=== PATIENT | female | born 1940 | race Caucasian/White ===

== ENCOUNTER 2018-03-10 00:25 | Inpatient (IN) | payer MEDICARE ==
[2018-03-10] MEDS ORDERED: Morphine 4 MG/ML VIAL ONE ×2 (00:43→02:20)
[2018-03-10] MEDS ORDERED: Ondansetron PF 4 MG/2 ML Vial ONE ×3 (00:43→11:33)
[2018-03-10 01:02] LABS: #Basophils 0.1 thou/uL (0.0-0.2); #Eosinphils 0.4 thou/uL (0.0-0.7); #Lymphocytes 2.2 thou/uL (1.20-3.40); #Monocytes 0.5 thou/uL (0.11-0.59); #Neutrophils 6.7 thou/uL (1.40-6.50); %Basophils 0.8 % (0.0-1.0); %Eosinophils 3.7 % (0.0-10.0); %Lymphocytes 22.1 % (21.0-51.0); %Monocytes 4.8 % (0.0-10.0); %Neutrophils 68.6 % (42.0-75.0); Hemoglobin 12.4 g/dL (12.0-16.0); Mean Corpuscular HGB CONC 33.1 g/dL (32.0-36.0); Mean Corpuscular Hemoglobin 25.9 pg (27.0-31.0); Mean Corpuscular Volume 78.3 fL (78.0-98.0); Mean Platelet Volume 7.4 fL (7.4-10.4); Platelet Count 238 thou/uL (130-400); RBC Distribution Width 12.2 % (11.5-14.5); Red Blood Cell (RBC) Count 4.77 mill/uL (4.20-5.40); White Blood Cell (WBC) Count 9.7 thou/uL (4.8-10.8)
[2018-03-10 01:29] LABS: ALT (SGPT) 10 U/L (8-55); AST (SGOT) 16 U/L (5-34); Alkaline Phosphatase 78 U/L (40-150); Anion Gap 14 mmol/L (10-20); BUN (Urea Nitrogen) 19 mg/dL (9.8-20.1); Bilirubin, Total 0.4 mg/dL (0.2-1.2); Calc. Creatinine Clearance 0 mL/min (70-130); Calcium 10.1 mg/dL (7.8-10.44); Carbon Dioxide 25 mmol/L (23-31); Chloride 105 mmol/L (98-107); Estimated GFR-MDRD 57; Glucose 147 mg/dL (83-110); Potassium 4.2 mmol/L (3.5-5.1); Sodium 140 mmol/L (136-145)
[2018-03-10 01:41] LABS: Bilirubin Negative (Negative); Blood, Urine Negative (Negative); Clarity CLOUDY (Clear); Glucose, Urine (Dipstick) Negative (Negative); Leukocyte Large (Negative); Nitrite Negative (Negative); Protein, Urine (Dipstick) Negative (Neg-Trace); Specific Gravity, Urine 1.019 (1.002-1.036); Urobilinogen 0.2 mg/dL (0.2-1.0)
[2018-03-10 01:43] LABS: Bacteria/HPF Rare-Few HPF (None Seen); Pathc Cast-AUWi Flag 1.74 (0-2.49); RBC/HPF 0-3 HPF (0-3)
[2018-03-10] MEDS ORDERED: Ondansetron PF 4 MG/2 ML Vial IVP PRN (01:49)
[2018-03-10] MEDS ORDERED: HYDROcodone/Acetaminophen 10/325 mg Tablet PO PRN (01:49)
[2018-03-10] MEDS ORDERED: Dextrose 50% Abboject 50 ML SYRINGE SLOW IVP PRN (01:49)
[2018-03-10] MEDS ORDERED: Dextrose 5% in Water 1,000 ML IV PRN (01:49)
[2018-03-10] MEDS ORDERED: hydrALAZINE 20 MG/ML VIAL SLOW IVP PRN (01:49)
[2018-03-10 01:51] LABS: Hyaline Casts/LPF 4-6 HYALINE CAST LPF (0-3 Hyaline)
[2018-03-10] MEDS: Morphine 2 MG/ML SYRINGE SLOW IVP PRN ×2 (03:15→06:32)
[2018-03-10] MEDS: Acetaminophen 325 MG TAB PO SCH ×4 (03:15→20:47)
[2018-03-10] MEDS: Sodium Chloride 0.9% 1,000 ML IV SCH ×2 (03:15→16:34)
[2018-03-10] MEDS ORDERED: Prevnar 13-Val Conj/PF 0.5 ML SYRINGE IM ONE (04:15)
[2018-03-10] MEDS: traMADol HCl 50 MG TAB PO SCH ×3 (05:31→20:10)
[2018-03-10] MEDS: Ibuprofen 600 MG TAB PO SCH ×3 (05:35→20:48)
[2018-03-10 05:37] VITALS: BMI 35.9
[2018-03-10 06:23] LABS: Hemoglobin A1c 5.7 % (4.0-6.0)
[2018-03-10 07:10] LABS: Bilirubin Negative (Negative); Blood, Urine Trace (Negative); Glucose, Urine (Dipstick) Negative (Negative); Leukocyte Negative (Negative); Nitrite Negative (Negative); Protein, Urine (Dipstick) Negative (Neg-Trace); Urobilinogen 0.2 mg/dL (0.2-1.0); pH, Urine 5.5 (5.0-9.0)
[2018-03-10 07:15] LABS: Clarity Clear (Clear)
[2018-03-10 07:19] LABS: Specific Gravity, Urine 1.026 (1.002-1.036)
[2018-03-10] MEDS ORDERED: CEFAZOLIN 2 GM/50 ML BAG IVPB SCH (08:00)
--- NOTE | 2018-03-10 08:03 | RAD ---
PORTABLE AP CHEST: Date: 03/10/18 HISTORY: Injury after a fall. COMPARISON: 12/26/10. FINDINGS: Cardiac silhouette is magnified by projection. Thoracic aorta is ectatic. There is atelectasis at the medial left lung base. Lungs are otherwise clear. Degenerative changes are present in the spine. No other interval change. IMPRESSION: 1. No acute cardiopulmonary process. 2. Ectasia of thoracic aorta. POS: [facility]
--- NOTE | 2018-03-10 08:09 | RAD ---
2 VIEWS RIGHT HIP: Date: 03/09/18 COMPARISON: None. HISTORY: Fall, trauma, pain. FINDINGS: Body habitus limits detailed assessment of the osseous structures. On the oblique image, there is a l ucency in the intertrochanteric region concerning for a fracture of the proximal right femur in this region. On the frontal examination, there is a probable fracture line noted in the intertrochanteric region at the distal aspect of the greater trochanter. IMPRESSION: Findings suspicious for proximal right femur fracture. This could be better assessed with CT examinat ion. POS: [facility]
--- NOTE | 2018-03-10 09:50 | HP ---
Referred by Dr. Monse Bowman in the Emergency Department. TRAUMA ATTENDING: Todd Patton MD REASON FOR ADMISSION: Right femoral neck fracture. HISTORY OF PRESENT ILLNESS: Ms. Tamayo is a 77-year-old female with past medical history of hypertension, who sustained a mechanical fall after tripping on carpet damage at her house, landing on her right hip. She denies any loss of consciousness, denies any neck pain, denies any headache. She has no pain other than the right hip. EMS was called. She has a shortened and externally rotated right leg, was given fentanyl en route and morphine here at the Emergency Department, noted on x-ray to have a right hip fracture. Labs have been unremarkable and Trauma Service was requested for admission. Dr. Maria of Orthopedic has been consulted and he will see the patient in the morning. I have seen the patient in the Emergency Department, she is still in quite a bit of pain in the right hip. A Vincent catheter is in place. Her vital signs are stable other than some hypertension that is noted. The patient denies any other pain. Denies nausea, vomiting, or diarrhea. Denies any recent fever or illness. She has no rashes, no neck pain, no headache, no chest pain. REVIEW OF SYSTEMS: Pertinent positives and negatives per the HPI, otherwise is regarded as negative. PAST MEDICAL HISTORY: Hypertension. MEDICATIONS: 1. Lisinopril 40 mg daily. 2. Metoprolol 50 mg daily. ALLERGIES: NO KNOWN DRUG ALLERGIES. PAST SURGICAL HISTORY: Appendectomy at age 9. SOCIAL HISTORY: The patient lives with her granddaughter in [place] where she lives since 1989. She is . She is a lifelong nonsmoker, nondrinker, no illicit drug use and completes all of her own ADLs. FAMILY HISTORY: Significant for cancer in her mother side with breast and melanoma. Dad's side, no known medical history. PHYSICAL EXAMINATION: VITAL SIGNS: Temperature is 97.8, blood pressure is 173/106, heart rate is 83, respiratory rate is 20, and O2 saturating 97% on room air. GENERAL: She is a 77-year-old female, lying in bed, and appears uncomfortable with pain, but nontoxic appearing. HEENT: Normocephalic and atraumatic. Trachea is midline. No JVD is appreciated. She has dry mucous membranes. RESPIRATORY: Equal rise and fall bilateral. Breath sounds are clear to auscultation in upper and lower bilaterally. CARDIOVASCULAR: Regular rate and rhythm. No murmurs appreciated. ABDOMEN: Obese, but soft and nontender. PELVIS: Right hip pain and Vincent catheter with yellow urine is noted. MUSCULOSKELETAL: Moves extremities, has sensation in all extremities. Right hip pain is noted. The right leg is shortened and externally rotated. Strong pulses in the upper extremities, no edema. SKIN: [place], warm, and dry. NEUROLOGIC: Alert and oriented to person, place, time, and event. PSYCHIATRIC: Normal mood and affect. DIAGNOSTIC DATA: Today, a hip x-ray shows a right femoral neck fracture. LABORATORY DATA: From today, shows UA with yellow urine, many white blood cells, but it is contaminated with no bacteria, nitrite negative, large amount of leukocytes; repeat this. Type and screen, O positive. Troponin is negative. Sodium is 140, potassium 4.2, chloride is 105, CO2 of 25, BUN is 19, creatinine is 0.95, and glucose is 147. Calcium is 10.1. AST and ALT are 16 and 10 respectively, alkaline phosphatase is 78. White blood cell count is 9.7, platelets are 238, and hemoglobin and hematocrit 12.4 and 37.4 respectively. EKG, sinus at rate of 84, with normal axis. ASSESSMENT: 1. Right hip fracture. 2. Acute traumatic pain. 3. Hyperglycemia. 4. Hypertension, pain versus chronic. PLAN: 1. Admit to the surgery adams. 2. N.p.o. for likely surgery tomorrow. 3. Dr. Maria has been consulted. 4. Additional 4 mg of morphine, 4 of Zofran for extreme pain. 5. Start oral medications. 6. Bedrest until surgery. 7. Obtain hemoglobin A1c. 8. Continue daily antihypertensives. 9. Trauma bowel regimen. 10. Diet will be n.p.o. except for meds until surgery. 11. Activity is bedrest until after surgery. 12. Full code. 13. Access of peripheral IVs and Vincent catheter. 14. Prophylaxis will be famotidine and SCDs until after surgery. 15. Disposition is surgery adams. I have coordinated the care with the Emergency Department physician and the ER staff. I have updated Ms. Tamayo at the bedside as well as her granddaughter and answered all questions. This plan can be updated as needed. Job ID: [id number]
[2018-03-10] MEDS: Famotidine 20 MG TAB PO SCH ×2 (10:17→20:48)
[2018-03-10] MEDS: Lisinopril 20 MG TAB PO SCH (10:17)
[2018-03-10] MEDS ORDERED: PHENYLEPHRINE-NS 100 MCG/ML 10 ML SYRINGE ONE (11:33)
[2018-03-10] MEDS ORDERED: Lidocaine 1% PF 5 ML VIAL ONE (11:33)
[2018-03-10] MEDS ORDERED: PROPOFOL 200 MG/20 ML VIAL ONE (11:33)
[2018-03-10] MEDS ORDERED: Ketorolac Tromethamine 30 MG/ML VIAL ONE (11:33)
[2018-03-10] MEDS ORDERED: Glycopyrrolate 0.2 MG/ML 5 ML SYRINGE ONE (11:33)
--- NOTE | 2018-03-10 11:46 | PRG ---
DATE OF SERVICE: 03/10/2018 SUBJECTIVE: The patient is resting comfortably in bed today. Reports good pain control. The patient has no concerns or complaints at this time. OBJECTIVE: VITAL SIGNS: Blood pressure 132/83, pulse 96, respirations 18, O2 saturation 97% on room air, temperature 97.6. GENERAL: Alert and awake, in no acute distress. HEENT: EOMI. Moist mucous membranes. NECK: Trachea midline. CARDIAC: Regular rate and rhythm. No murmurs. RESPIRATORY: Clear to auscultation bilaterally. No wheezing. ABDOMEN: Normal bowel sounds. NEUROLOGIC: No acute focal deficits. LABORATORY DATA: White blood cell count 9.7, hemoglobin 12.4, hematocrit 37.4, platelet count 238. Sodium 140, potassium 4.2, BUN 19, creatinine 0.95, glucose 147. ASSESSMENT: 1. Right hip fracture. 2. Acute traumatic pain. 3. Hypertension. 4. Hyperglycemia. PLAN: 1. Orthopedic Surgery has been consulted. The patient is n.p.o. for possibility of surgery. 2. Home medications for hypertension. 3. Continue pain control and keep the patient bedrest until surgery. 4. We will follow up on hemoglobin A1c. 5. We will consult rehab screen for discharge planning. This patient was seen and evaluated by Dr. Davis, on morning rounds. The patient verbalized understanding and agreement with plan. Job ID: [id number]
--- NOTE | 2018-03-10 14:59 | CON ---
DATE OF CONSULTATION: CHIEF COMPLAINT: Right hip pain. HISTORY OF PRESENT ILLNESS: Ms. Tamayo is a 77-year-old female, who was at home yesterday. She tripped on a rug. She fell hard on her right side. She landed on her right hip. She was unable to ambulate. She had pain in the hip. She was taken to the emergency department by EMS. X-rays had demonstrated an intertrochanteric femur fracture. She had been admitted to the hospital. She is currently comfortable in resting. She has her granddaughter with her at the bedside. She normally ambulates well with no walker or cane. No previous recent fractures. She reports being in good health recently. PAST MEDICAL HISTORY: Hypertension and osteoarthritis. PAST SURGICAL HISTORY: Appendectomy. SOCIAL HISTORY: The patient denies alcohol, tobacco, or drug use. She lives with her granddaughter independently. ALLERGIES: NO KNOWN DRUG ALLERGIES. PHYSICAL EXAMINATION: VITAL SIGNS: Temperature is 98.4, pulse is 97, respiratory rate 18, and blood pressure 140/78. GENERAL: She is alert and oriented, lying supine, in no apparent distress. HEENT: Normocephalic and atraumatic. RESPIRATORY: Breathing comfortably. ABDOMEN: Soft, nontender, and nondistended. CARDIOVASCULAR: Pulses are palpable and regular. MUSCULOSKELETAL: The patient's right lower extremity has pain with motion. She is slightly shortened. She has intact neurovascular status distally. SKIN: Intact. DIAGNOSTIC DATA: X-ray of the right pelvis and hip demonstrates intertrochanteric femur fracture with displacement, two part fracture. IMPRESSION: Right intertrochanteric femur fracture in an elderly female. PLAN: At this point, the patient will need to go to the operating room. I have reviewed risks and benefits with her. Risks to include infection, pain, scarring, nerve or vascular injury, DVT, hardware failure, nonunion, and others. Goal of surgery is to promote early mobilization and prevent complications and prolong bedrest. We will plan for a dynamic hip screw fixation of the intertrochanteric fracture. She will remain n.p.o. She will have pain control and deep venous thrombosis prophylaxis, as well as antibiotic prophylaxis. Job ID: [id number]
[2018-03-10] MEDS ORDERED: Fentanyl 100 MCG/2 ML VIAL ONE (16:41)
[2018-03-10] MEDS ORDERED: CEFAZOLIN 2 GM/50 ML BAG ONE (16:49)
[2018-03-10] MEDS ORDERED: Ondansetron HCl/PF 4 MG/2 ML Vial IVP PRN (18:11)
[2018-03-10] MEDS ORDERED: Promethazine HCl 25 MG/ML VIAL IM PRN (18:11)
[2018-03-10] MEDS ORDERED: Promethazine HCl 25 MG/ML VIAL SLOW IVP PRN (18:11)
[2018-03-10] MEDS: CEFAZOLIN 2 GM/50 ML BAG IV SCH (20:10)
--- NOTE | 2018-03-10 20:39 | RAD ---
RIGHT HIP 2 VIEWS: Date: 03/10/18 HISTORY: Intraoperative films. FINDINGS: Films show Grubbs-type compression screw and side plate stabilizing an intertrochanteric fracture i n satisfactory position. IMPRESSION: Intraoperative films showing open reduction and internal fixation of hip fracture. POS: [facility]
[2018-03-10] MEDS: traMADol HCl 50 MG TAB PO PRN (20:48)
[2018-03-11] MEDS: traMADol HCl 50 MG TAB PO SCH ×4 (00:58→17:04)
[2018-03-11] MEDS: CEFAZOLIN 2 GM/50 ML BAG IV SCH (01:01)
[2018-03-11] MEDS: Acetaminophen 325 MG TAB PO SCH ×2 (03:39→08:47)
--- NOTE | 2018-03-11 04:47 | OP ---
DATE OF PROCEDURE: 03/10/2018 PROCEDURE PERFORMED: Right intertrochanteric femur internal fixation with dynamic hip screw. PREOPERATIVE DIAGNOSIS: Right intertrochanteric femur fracture. POSTOPERATIVE DIAGNOSIS: Right intertrochanteric femur fracture. COMPLICATIONS: None. ESTIMATED BLOOD LOSS: 150 mL. ANESTHESIA: General. GARAGE DOOR OPENER INSTALLER: Jak Becerril PA-C IMPLANTS: Synthes 3-hole, 135-degree DHS screw and sideplate 80-mm screw. INDICATIONS FOR PROCEDURE: Ms. Tamayo is a 77-year-old female, who has fallen. She fractured her right proximal femur. She was indicated for open reduction and fixation to restore anatomical alignment and promote healing. Risks have been reviewed in detail. She elected to proceed with the operation. DESCRIPTION OF PROCEDURE: Ms. Tamayo was identified in the preoperative holding area. Her correct extremity was marked. She was carried to the operating room. She was positioned supine. General anesthesia was induced. A multidisciplinary time-out was performed. The right lower extremity was prepped and draped in sterile fashion. We began the procedure with lateral incision over the thigh. We dissected down through the subcutaneous tissues to the vastus fascia, which was opened. We then cleared the soft tissues from the lateral femoral cortex. At this point, we placed a 135-degree angle guide. We placed a pin in the center position of the femoral head. At this point, we overdrilled the guidepin. We measured an appropriate length. We then placed our central screw. We impacted a 3-hole plate. We then placed 3 screws through the plate, locking the plate to the bone. We took final images. We thoroughly irrigated with copious lavage. We then closed in appropriate layers. The patient was taken to the recovery room in good condition. Job ID: [id number]
[2018-03-11 06:10] LABS: Hemoglobin 10.3 g/dL (12.0-16.0); Mean Corpuscular Hemoglobin 26.4 pg (27.0-31.0); Mean Platelet Volume 7.6 fL (7.4-10.4); Platelet Count 198 thou/uL (130-400); RBC Distribution Width 12.3 % (11.5-14.5); White Blood Cell (WBC) Count 9.3 thou/uL (4.8-10.8)
[2018-03-11] MEDS: Ibuprofen 600 MG TAB PO SCH ×3 (06:28→21:43)
[2018-03-11] MEDS: Famotidine 20 MG TAB PO SCH ×2 (08:47→21:43)
[2018-03-11] MEDS: Lisinopril 20 MG TAB PO SCH (08:47)
[2018-03-11] MEDS ORDERED: Chloraseptic Spray 180 ml Bottle PO PRN (11:28)
[2018-03-11] MEDS: Acetaminophen 500 MG TAB PO SCH ×2 (14:00→21:43)
--- NOTE | 2018-03-11 18:31 | PRG ---
DATE OF SERVICE: 03/11/2018 SUBJECTIVE: The patient had a mechanical fall, she is postop day #1 status post right hip fracture. She reports good pain control at this time. She is resting comfortably in bed. Currently, her SpO2 is 86% on room air. The patient does complain of throat pain, otherwise no complaints. OBJECTIVE: VITAL SIGNS: Blood pressure 116/75, respirations 18, pulse 70, temperature 97.7, and SpO2 of 96% on 2 L nasal cannula. GENERAL: The patient is awake and alert, in no distress. CARDIAC: Regular rate and rhythm, and no murmurs. RESPIRATORY: No wheezing. Respirations equal and unlabored. ABDOMEN: Nontender. NEUROLOGIC: No focal deficits. EXTREMITIES: Moves all extremities. LABORATORY DATA: White blood count 9.3, RBC 3.90, hemoglobin 10.3, and hematocrit 31.2. ASSESSMENT: 1. Mechanical fall. 2. Right hip fracture, status post open reduction and internal fixation. 3. Acute traumatic pain. 4. Hypertension. 5. Hyperglycemia. PLAN: Start on Lovenox for DVT prophylaxis. Discontinue Vincent. We will order Chloraseptic spray for throat pain. Place patient back on oxygen. We will encourage the patient to use her incentive spirometer. We will continue physical therapy and encourage getting up and moving. Continue pain management. Case management consulted for placement. The patient was discussed with attending surgeon. Job ID: [id number] [facility]
[2018-03-11] MEDS: Enoxaparin Sodium 40 MG/0.4 ML SYRINGE SC SCH (21:43)
[2018-03-12] MEDS: traMADol HCl 50 MG TAB PO SCH ×5 (00:21→23:27)
[2018-03-12] MEDS: Acetaminophen 500 MG TAB PO SCH ×4 (03:07→20:54)
[2018-03-12] MEDS: Ibuprofen 600 MG TAB PO SCH ×3 (05:38→20:54)
[2018-03-12 06:24] LABS: #Basophils 0.1 thou/uL (0.0-0.2); #Eosinphils 0.9 thou/uL (0.0-0.7); #Lymphocytes 1.9 thou/uL (1.20-3.40); #Monocytes 0.7 thou/uL (0.11-0.59); #Neutrophils 4.9 thou/uL (1.40-6.50); %Basophils 0.8 % (0.0-1.0); %Eosinophils 10.7 % (0.0-10.0); %Lymphocytes 22.9 % (21.0-51.0); %Monocytes 7.8 % (0.0-10.0); %Neutrophils 57.9 % (42.0-75.0); Hemoglobin 9.7 g/dL (12.0-16.0); Mean Corpuscular HGB CONC 32.6 g/dL (32.0-36.0); Mean Corpuscular Hemoglobin 25.8 pg (27.0-31.0); Mean Corpuscular Volume 79.2 fL (78.0-98.0); Mean Platelet Volume 7.8 fL (7.4-10.4); Platelet Count 177 thou/uL (130-400); RBC Distribution Width 12.4 % (11.5-14.5); Red Blood Cell (RBC) Count 3.76 mill/uL (4.20-5.40); White Blood Cell (WBC) Count 8.4 thou/uL (4.8-10.8)
[2018-03-12 06:48] LABS: Anion Gap 10 mmol/L (10-20); BUN (Urea Nitrogen) 15 mg/dL (9.8-20.1); Calc. Creatinine Clearance 76 mL/min (70-130); Calcium 8.9 mg/dL (7.8-10.44); Carbon Dioxide 27 mmol/L (23-31); Chloride 105 mmol/L (98-107); Estimated GFR-MDRD 61; Glucose 106 mg/dL (83-110); Phosphorus 2.6 mg/dL (2.3-4.7); Potassium 4.5 mmol/L (3.5-5.1); Sodium 137 mmol/L (136-145)
[2018-03-12] MEDS: Famotidine 20 MG TAB PO SCH ×2 (09:31→20:54)
[2018-03-12] MEDS: Lisinopril 20 MG TAB PO SCH (09:31)
--- NOTE | 2018-03-12 12:47 | EKG ---
Test Reason : Blood Pressure : / mmHG Vent. Rate : 084 BPM Atrial Rate : 084 BPM P-R Int : 184 ms QRS Dur : 084 ms QT Int : 410 ms P-R-T Axes : 060 -01 031 degrees QTc Int : 484 ms Normal sinus rhythm Confirmed by LIBBY BASS [id number]), transformer mechanic JESSICA MALDONADO ([id number]) on 03/12/2018 12:47:35 PM Referred By: SHELIA Confirmed By:LIBBY BASS
--- NOTE | 2018-03-12 20:19 | PRG ---
DATE OF SERVICE: 03/12/2018 SUBJECTIVE: This is a 77-year-old female, who had a mechanical fall. She is postop day #2 right hip fracture. The patient was just recently up with physical therapy and has been sitting up in the chair for a couple of hours reporting some mild nausea, which has resolved after she laid down in the bed. The patient has not had a bowel movement, but is passing gas. The patient does have a good appetite. The patient continues to use her incentive spirometer and has improved. The patient is currently off oxygen at this time and tolerating well. The patient also reports that her pain is well controlled. There were no overnight events. OBJECTIVE: VITAL SIGNS: Temperature 98.0, pulse 71, respirations 14, O2 saturation 95%, blood pressure 145/79. GENERAL: The patient is awake and alert. GCS of 15. No distress. CARDIAC: Regular rate and rhythm. No pedal edema. RESPIRATORY: No wheezing. Respirations equal and unlabored. No cyanosis. ABDOMEN: Nontender and soft. NEUROLOGIC: No focal deficits. EXTREMITIES: The patient moves all extremities with good distal pulses. LABORATORY DATA: WBC 8.4, RBC 3.76, hemoglobin 9.7, hematocrit 29.8. Sodium 137, potassium 4.5, chloride 105, CO2 of 27, BUN 15, creatinine 0.90, calcium 8.9, phosphorus 2.6, magnesium 2.0. ASSESSMENT: 1. Mechanical fall. 2. Right hip fracture, status post open reduction and internal fixation, day #2. 3. Acute traumatic pain. PLAN: 1. Continue pain management. 2. Continue physical therapy and encourage the patient to be up in the chair, using her incentive spirometer. The patient is pending placement to swing bed in [place]. 3. We will continue bowel regimen. The patient has been discussed with the admitting surgeon. Job ID: [id number]
[2018-03-12] MEDS: Senokot S 8.6-50 MG TAB PO SCH (20:54)
[2018-03-12] MEDS: Enoxaparin Sodium 40 MG/0.4 ML SYRINGE SC SCH (20:57)
[2018-03-13] MEDS: Acetaminophen 500 MG TAB PO SCH ×4 (03:09→20:07)
[2018-03-13] MEDS: Ibuprofen 600 MG TAB PO SCH ×3 (05:24→21:38)
[2018-03-13] MEDS: traMADol HCl 50 MG TAB PO SCH ×4 (05:24→23:27)
[2018-03-13] MEDS: Polyethylene Glycol 3350 17 GM Packet PO SCH (08:55)
[2018-03-13] MEDS: traMADol HCl 50 MG TAB PO PRN (08:55)
[2018-03-13] MEDS: Famotidine 20 MG TAB PO SCH ×2 (08:55→20:06)
[2018-03-13] MEDS: Lisinopril 20 MG TAB PO SCH (08:55)
[2018-03-13] MEDS: Senokot S 8.6-50 MG TAB PO SCH ×2 (08:55→20:06)
--- NOTE | 2018-03-13 12:55 | PRG ---
DATE OF SERVICE: 03/13/2018 SUBJECTIVE: A 77-year-old female, who had a mechanical fall, postop day 3 right hip fracture repair. The patient participated with physical therapy this morning and was able to ambulate. Reports that her pain is controlled at this time. Her only complaint is taking her blood pressure pill before her breakfast this morning as it caused a headache. She was informed she could ask the nurse to give it to her after she eats next time. The patient voices no other concerns at this time. There were no overnight events. The patient still has not had bowel movement since admission , but is passing gas. She reports that she normally goes several days without having a bowel movement, so this is not unusual for her. The patient continues to have a good appetite. The patient continues to use her incentive spirometer. The patient continues to require oxygen occasionally. OBJECTIVE: VITAL SIGNS: Temperature 97.8, pulse 74, respirations 20, SpO2 92% on room air, blood pressure 135/77. GENERAL: The patient is awake and alert. GCS of 15. No distress. CARDIAC: Regular rate and rhythm. No pedal edema. RESPIRATORY: No audible wheezing. Respirations equal and unlabored. No cyanosis. ABDOMEN: Soft, nontender. NEUROLOGIC: There are no focal deficits. EXTREMITIES: The patient moves all extremities with good distal pulses. LABORATORY DATA: There is no morning labs to review at this time. ASSESSMENT: 1. Mechanical fall. 2. Postop day 3 right hip fracture with open reduction and internal fixation. 3. Acute traumatic pain. PLAN: We will continue pain management. We will also continue patient on a bowel regimen. We will continue physical therapy. Encourage the patient to get up in the chair and ambulate as much as possible. Continue to encourage incentive spirometer use so she can be off oxygen permanently. Plan is for patient to go to the [facility] swing bed tomorrow. The patient has been discussed with the attending surgeon. Job ID: [id number] [facility]
[2018-03-13] MEDS: Enoxaparin Sodium 40 MG/0.4 ML SYRINGE SC SCH (20:06)
[2018-03-14] MEDS: Acetaminophen 500 MG TAB PO SCH ×2 (02:49→08:00)
[2018-03-14] MEDS: traMADol HCl 50 MG TAB PO PRN (04:34)
[2018-03-14] MEDS: Ibuprofen 600 MG TAB PO SCH (05:53)
[2018-03-14] MEDS: traMADol HCl 50 MG TAB PO SCH ×2 (05:53→11:23)
[2018-03-14 07:23] LABS: #Eosinphils 0.6 thou/uL (0.0-0.7); #Lymphocytes 1.6 thou/uL (1.20-3.40); #Monocytes 0.5 thou/uL (0.11-0.59); #Neutrophils 3.7 thou/uL (1.40-6.50); %Basophils 0.7 % (0.0-1.0); %Eosinophils 9.1 % (0.0-10.0); %Lymphocytes 25.2 % (21.0-51.0); %Monocytes 7.3 % (0.0-10.0); %Neutrophils 57.6 % (42.0-75.0); Hemoglobin 9.6 g/dL (12.0-16.0); Mean Corpuscular HGB CONC 32.7 g/dL (32.0-36.0); Mean Corpuscular Volume 79.5 fL (78.0-98.0); Mean Platelet Volume 7.5 fL (7.4-10.4); Platelet Count 196 thou/uL (130-400); RBC Distribution Width 12.7 % (11.5-14.5); Red Blood Cell (RBC) Count 3.69 mill/uL (4.20-5.40); White Blood Cell (WBC) Count 6.4 thou/uL (4.8-10.8)
[2018-03-14] MEDS ORDERED: Cyclobenzaprine 10 MG TAB PO PRN (07:38)
[2018-03-14] MEDS ORDERED: traMADol HCl 50 MG TAB PO PRN (07:38)
[2018-03-14] MEDS: Senokot S 8.6-50 MG TAB PO SCH (08:00)
[2018-03-14] MEDS: Lisinopril 20 MG TAB PO SCH (08:00)
[2018-03-14] MEDS: Famotidine 20 MG TAB PO SCH (08:00)
[2018-03-14] MEDS: Polyethylene Glycol 3350 17 GM Packet PO SCH (08:01)
[2018-03-14 08:13] VITALS: TEMP 98.2
[2018-03-14 11:48] VITALS: BP 155/82
--- NOTE | 2018-03-14 12:55 | DIS ---
DATE OF ADMISSION: 03/10/2018 DATE OF DISCHARGE: 03/14/2018 PRIMARY CARE PHYSICIAN: Erika Morillo DO RESIDENT: Javier Evans MD ADMITTING ATTENDING: Todd Patton MD DISCHARGE ATTENDING: Yaakov Mena MD CONSULTS: Orthopedic Surgery, Dr. Maria. PROCEDURES: 1. On 03/10/2018, hip x-ray, impression, intraoperative films are showing open reduction and internal fixation of hip fracture. 2. On 03/10/2018, hip x-ray, impression, findings suspicious of proximal right femur fracture. This could be better assessed with CT examination. 3. On 03/10/2018, chest x-ray, impression, no acute cardiopulmonary process, ectasia of thoracic aorta. 4. On 03/10/2018, right intertrochanteric femur internal fixation with dynamic hip screw. PRIMARY DIAGNOSIS: Right intertrochanteric femur fracture, status post open reduction and internal fixation. SECONDARY DIAGNOSIS: Hypertension. DISCHARGE MEDICATIONS: 1. Lisinopril 20 mg p.o. daily. 2. Metoprolol succinate 50 mg p.o. daily. 3. Acetaminophen 1000 mg p.o. q.6 hours p.r.n. 4. Flexeril 10 mg p.o. b.i.d. p.r.n. 5. Famotidine 20 mg p.o. b.i.d. 6. Ferrous sulfate 300 mg p.o. daily. 7. Ibuprofen 600 mg p.o. q.8 hours. 8. MiraLAX 17 g pack p.o. daily. 9. Senokot-S 1 tab p.o. b.i.d. 10. Tramadol 100 mg p.o. q.6 hours p.r.n. DISCONTINUED MEDICATIONS: None. HOSPITAL COURSE: This is a 77-year-old female with past medical history of hypertension, who presented to the emergency room after a mechanical fall at her home, tripping on a carpet. She reported landing on her right hip and was shortly found to have a right intertrochanteric femur fracture. Orthopedic Surgery was consulted and made plans for open reduction and internal fixation of said fracture. The patient tolerated procedure well and had uncomplicated postoperative course. The patient tolerated p.o. diet after operation. Reported good pain control and had a bowel movement, well controlled pain with ibuprofen, tramadol, and Tylenol. The patient's recovery was also encouraged by physical therapy and occupational therapy and the patient was deemed stable for discharge. DISPOSITION: Stable. DISCHARGE INSTRUCTIONS: LOCATION: [facility]. DIET: Healthy heart. ACTIVITY: As tolerated. FOLLOWUP: Follow up with primary care physician, Erika Morillo, in 2 to 3 weeks and orthopedic surgeon, Dr. Maria in 10 days. This patient was seen and evaluated by Dr. Mena on the day of discharge. The patient verbalized understanding with the plan and was in agreement. Job ID: [id number]
== END 2018-03-14 11:49 | disposition home or self-care (01) | DRG 482 ==
LOC: ERS 00:25 → SJJU 01:40
PROVIDERS: ADMIT Surgery; ATTEND Surgery
PROC: 0QS604Z Reposition Right Upper Femur with Internal Fixation Device, Open Approach (ICD-10-PCS; principal; 2018-03-10)
DX: S72.141A Displaced intertrochanteric fracture of right femur, initial encounter for closed fracture (principal); W01.0XXA Fall on same level from slipping, tripping and stumbling without subsequent striking against object, initial encounter; Y92.009 Unspecified place in unspecified non-institutional (private) residence as the place of occurrence of the external cause; I10 Essential (primary) hypertension; R73.9 Hyperglycemia, unspecified; M19.90 Unspecified osteoarthritis, unspecified site; Z80.3 Family history of malignant neoplasm of breast; Z80.8 Family history of malignant neoplasm of other organs or systems
CPT/HCPCS: 36415; 51702; 71045; 76001; 80048; 80053; 81003; 81015; 83036; 83735; 84100; 84484; 85025; 85027; 86850; 86900; 86901; 87086; 93005; 96374; 96375; 96376; C1713; C1769; G8978-GP-CM; G8979-GP-CK; G8987-GO-CL; G8988-GO-CJ; J1650; J1885; J2001; J2270; J2405; J2704; J3010

== ENCOUNTER 2019-04-08 18:17 | Observation (INO) | payer MEDICARE ==
[2019-04-08] MEDS ORDERED: Ondansetron PF 4 MG/2 ML Vial ONE ×2 (18:38→18:47)
[2019-04-08] MEDS ORDERED: Morphine 4 MG/ML VIAL ONE (18:38)
--- NOTE | 2019-04-08 20:11 | ULT ---
GALLBLADDER ULTRASOUND: 04/08/19 HISTORY: Right upper quadrant pain. Real time imaging of the right upper quadrant shows an echogenic focus with shadowing within the gall bladder compatible with a stone. Common duct is in the 5 mm range. There is some minimal gallbladder wall or pericholecystic edema change seen. The technologist reports a positive ultrasound Broussard's si gn. The visualized liver parenchyma shows no focal findings. The pancreas is obscured. Right kidney is no t obstructed and normal in size. IMPRESSION: Cholelithiasis with some thickening to the gallbladder wall. Suggestion of some edema change within t he wall and a positive ultrasound Broussard's sign. POS: [facility]
[2019-04-08] MEDS ORDERED: Ondansetron ODT 4 MG TAB SL PRN (21:44)
[2019-04-08] MEDS ORDERED: Ondansetron PF 4 MG/2 ML Vial IVP PRN (21:44)
[2019-04-08] MEDS ORDERED: Morphine 2 MG/ML SYRINGE SLOW IVP PRN (21:45)
[2019-04-08 22:02] VITALS: BMI 35.0
[2019-04-08] MEDS: Lactated Ringer's 1,000 ML IV SCH (22:14)
[2019-04-08] MEDS: Piperacillin/Tazobactam 3.375 GM in Sodium Chloride 0.9% 100 ML IVPB SCH (23:15)
[2019-04-09] MEDS: Piperacillin/Tazobactam 3.375 GM in Sodium Chloride 0.9% 100 ML IVPB SCH (06:26)
[2019-04-09] MEDS: Lactated Ringer's 1,000 ML IV SCH ×3 (06:41→15:22)
[2019-04-09] MEDS ORDERED: Metoprolol Tartrate 50 MG TAB PO SCH ×3 (06:45→21:00)
[2019-04-09] MEDS ORDERED: Lidocaine 1% w/Epinephrine 1:100K 20 ML VIAL ONE (07:36)
[2019-04-09] MEDS ORDERED: Bupivacaine PF 0.5% 30 ML VIAL ONE (07:36)
[2019-04-09] MEDS ORDERED: Fentanyl 100 MCG/2 ML VIAL ONE (08:06)
[2019-04-09] MEDS ORDERED: Promethazine HCl 25 MG/ML VIAL IM PRN (08:31)
[2019-04-09] MEDS ORDERED: PACU-Morphine 4MG/ML VIAL SLOW IVP PRN (08:31)
[2019-04-09] MEDS ORDERED: Ondansetron HCl/PF 4 MG/2 ML Vial IVP PRN (08:31)
[2019-04-09] MEDS ORDERED: Promethazine HCl 25 MG/ML VIAL SLOW IVP PRN (08:31)
[2019-04-09] MEDS ORDERED: Lisinopril 20 MG TAB PO SCH (09:00)
[2019-04-09] MEDS ORDERED: Famotidine/PF 20 mg/2ml Vial SLOW IVP SCH (09:00)
[2019-04-09] MEDS ORDERED: Ondansetron PF 4 MG/2 ML Vial IVP PRN (09:50)
[2019-04-09] MEDS ORDERED: HYDROcodone/Acetaminophen 10/325 mg Tablet PO PRN (09:50)
[2019-04-09] MEDS ORDERED: hydrALAZINE 20 MG/ML VIAL SLOW IVP PRN (09:50)
[2019-04-09] MEDS ORDERED: Acetaminophen 325 MG TAB PO PRN (09:50)
[2019-04-09] MEDS ORDERED: HYDROcodone/Acetaminophen 5/325 mg Tablet PO PRN (09:57)
[2019-04-09] MEDS ORDERED: Dexamethasone 20 MG/5 ML VIAL ONE (10:12)
[2019-04-09] MEDS ORDERED: Glycopyrrolate 0.2 MG/ML 5 ML SYRINGE ONE (10:12)
[2019-04-09] MEDS ORDERED: PROPOFOL 200 MG/20 ML VIAL ONE (10:12)
[2019-04-09] MEDS ORDERED: PHENYLEPHRINE-NS 100 MCG/ML 10 ML SYRINGE ONE (10:12)
[2019-04-09] MEDS ORDERED: Rocuronium Bromide 10 MG/ML (10ML VIAL) ONE (10:12)
[2019-04-09] MEDS ORDERED: Ondansetron PF 4 MG/2 ML Vial ONE (10:12)
[2019-04-09] MEDS ORDERED: Lidocaine 1% PF 5 ML VIAL ONE (10:12)
--- NOTE | 2019-04-09 10:14 | OP ---
DATE OF PROCEDURE: 04/09/2019 PREOPERATIVE DIAGNOSIS: Acute cholecystitis. POSTOPERATIVE DIAGNOSIS: Acute cholecystitis. PROCEDURE PERFORMED: Laparoscopic cholecystectomy. ANESTHESIA: General. ESTIMATED BLOOD LOSS: Minimal. SPECIMENS: Gallbladder. COMPLICATIONS: None. COUNTS: Sponge and needle count were correct x2. INDICATIONS FOR PROCEDURE: The patient is a 78-year-old female with preoperative history and physical exam as well as radiographic workup consistent with acute cholecystitis. FINDINGS: Acute cholecystitis. CONDUCT OF THE PROCEDURE: After written preprocedural informed consent, the patient was brought to the operating room, placed in a supine position and intubated. The abdomen was prepared and draped in a sterile fashion. A time-out was performed. A direct optical entry technique was used in the right upper quadrant. Pneumoperitoneum was established. The underlying viscera were inspected and there was no damage noted. Two additional trocars were placed into the right costal margin and an infraumbilical trocar was placed. The gallbladder was very tense. There was surrounding inflammatory fluid. An aspiration needle was brought into decompress the gallbladder. The fundus was then grasped and retracted over the dome of the liver. Changes were consistent with acute cholecystitis. The infundibulum was grasped and retracted laterally. Blunt dissection was carried out in the triangle of Calot until the duct and artery were clearly identified. Clips were placed proximally and distally on the cystic duct and it was divided. The artery was divided in a similar fashion. The gallbladder was removed from the gallbladder bed fossa utilizing hook electrocautery. The specimen was placed in an EndoCatch bag. The right upper quadrant was irrigated and suctioned free. There was no bleeding or bile staining noted. The gallbladder was removed through the umbilical trocar. Given the size of the gallstone, the skin incision needed to be extended. Once this was extracted, the fascia was closed with a 0 Vicryl suture utilizing a suture passer. The remaining trocars were removed after the pneumoperitoneum had been released. Skin was closed with Monocryl and Dermabond. The patient was extubated and taken to postanesthesia care area in good condition having tolerated the procedure well. Job ID: [id number]
[2019-04-09] MEDS ORDERED: Ketorolac Tromethamine 30 MG/ML VIAL IVP SCH (12:00)
[2019-04-09 17:14] VITALS: BP 145/75; TEMP 98.3
--- NOTE | 2019-04-10 07:40 | HP ---
CHIEF COMPLAINT: "My abdomen and back hurt." HISTORY OF PRESENT ILLNESS: The patient is a 78-year-old female who was in her usual state of health until she began to have upper abdominal and back pain. Her pain began approximately a [id number]-[id number]-half ago. It was fairly constant. Nothing seemed to make it better or worse. She has had some recent bloating with fried or fatty foods. She presented to an outside emergency room and underwent evaluation. She was found to have labs and ultrasounds concerning for acute cholecystitis and so she was transferred here. The patient states that her pain is slightly better. She has not taken any of her outpatient medication. She is having some nausea but no vomiting. PAST MEDICAL HISTORY: For anemia and hypertension. PAST SURGICAL HISTORY: For appendectomy as a child. ALLERGIES: NONE. MEDICATIONS: 1. 81 mg aspirin every day. 2. Lisinopril 40 mg by mouth every day. 3. Metoprolol 50 mg by mouth twice a day. SOCIAL HISTORY: No alcohol or drug use. Has no smoking history. REVIEW OF SYSTEMS: Negative for 10 systems, two-point per system, other than HPI. PHYSICAL EXAMINATION: VITAL SIGNS: Temperature 98.1, heart rate 106, blood pressure 152/84. GENERAL: An elderly female, in no apparent distress. HEENT: Head is normocephalic, atraumatic. NECK: Supple with a midline trachea. HEART: Regularly regular without murmur. LUNGS: Grossly clear to auscultation bilaterally. ABDOMEN: Round, soft, tender to palpation of the right upper quadrant. No Broussard sign. EXTREMITIES: Full range of motion. No deformity. SKIN: Good turgor. No jaundice. PSYCHIATRIC: Good insight and good judgment. LABORATORY DATA: White blood cell count 11, H and H of 9.6 and 32.3, platelets 270. Lipase 29. Her electrolytes are within normal. LFTs are within normal. Ultrasound, I independently reviewed the images as well as read the radiologist's interpretation. The patient has cholelithiasis with a thickened gallbladder wall, consistent with acute cholecystitis. ASSESSMENT: 1. Acute cholecystitis. I have discussed the risks and benefits of proceeding to the operating room with the patient. Risks include, but are not limited to, bleeding, infection, damage to bowel or bile ducts. She agrees to proceed. 2. Tachycardia-this may be secondary to illness or the fact the patient has not her beta-thiago in 2 days. We will give this preoperatively. She is also somewhat hypertensive. The patient will receive her beta-thiago this morning. PLAN: Laparoscopic cholecystectomy. Decision for surgery was made today. Disposition will depend on intraoperative findings. Also plan on putting patient back on her regular outpatient medications. She is on antibiotics. She has been n.p.o. Job ID: [id number]
[2019-04-10] MEDS ORDERED: Aspirin 81 mg Enteric Coated Tablet PO SCH (09:00)
--- NOTE | 2019-04-10 14:59 | DIS ---
DATE OF ADMISSION: 04/08/2019 DATE OF DISCHARGE: 04/09/2019 PROCEDURE PERFORMED: Laparoscopic cholecystectomy on April 09, 2019. CLINICAL HISTORY: The patient is a 78-year-old female who had presented to the hospital with signs and symptoms of acute cholecystitis. She was brought into the hospital and then went to the operating room for a laparoscopic cholecystectomy. The patient did well and was discharged home later that day. DISPOSITION: Home. DISCHARGE MEDICATIONS: Campbell 5/325 mg, take one tab by mouth every 6 hours as needed for pain. PHYSICAL EXAMINATION: GENERAL: Elderly female in no apparent distress. HEAD: Normocephalic, atraumatic. LUNGS: Grossly clear to auscultation bilaterally. HEART: Regularly regular. ABDOMEN: Soft, appropriately tender. Incisions are clean, dry, and intact, normoactive bowel sounds. DISCHARGE CONDITION: Good. FOLLOWUP: The patient is to follow up with Dr. Tolliver of the [place] location in approximately 2 weeks. Job ID: [id number]
== END 2019-04-09 17:24 | disposition home or self-care (01) ==
LOC: ERS 18:17 → SURG A 20:21
PROVIDERS: ADMIT Surgery; ATTEND Surgery
PROC: 0FT44ZZ Resection of Gallbladder, Percutaneous Endoscopic Approach (ICD-10-PCS; principal; 2019-04-09)
DX: K81.0 Acute cholecystitis (principal); K82.8 Other specified diseases of gallbladder; I10 Essential (primary) hypertension; Z79.82 Long term (current) use of aspirin; Z79.899 Other long term (current) drug therapy
CPT/HCPCS: 47562; 76705; 84484; 88304; 93005; 96361 ×3; 96365; 96366; 96375 ×2; 96376; 99285; G0378 ×3; 36415; 96374; J1100; J1885; J2001; J2270; J2405; J2543; J2704; J3010; J3490; J7120; S0020; S0028